=== PATIENT | male | born 1990 | race Caucasian/White ===

== ENCOUNTER 2020-03-11 08:28 | Outpatient (REF) | payer OTHER, SELFPAY ==
[2020-03-11 11:10] LABS: MANUAL DIFF FLAG NO
[2020-03-11 11:22] LABS: Estimated Average Glucose 85 mg/dL; Hemoglobin A1c % 4.6 %
[2020-03-11 11:37] LABS: Basophils Percent Auto 0.8 % (0-2); Eosinophils Absolute Auto 0.2 X10*3/uL (0.0-0.4); Eosinophils Percent Auto 3.3 % (0-4); Hematocrit 43.9 % (42-52); Hemoglobin 15.3 g/dl (14.0-18.0); Imm Gran Abs Auto 0.02 X10*3/uL (0.00-0.03); Imm Gran Pct Auto 0.4 % (0.0-0.4); Lymphocytes Absolute Auto 1.2 X10*3/uL (1.2-4.9); Lymphocytes Percent Auto 24.8 % (20-40); Mean Corpuscular HGB Conc 34.9 g/dl (31.0-36.0); Mean Corpuscular Hemoglobin 30.8 pg (27.0-33.0); Mean Corpuscular Volume 88.5 fL (80-98); Monocytes Absolute Auto 0.4 X10*3/uL (0.1-1.2); Monocytes Percent Auto 7.5 % (2-11); Neutrophils Absolute Auto 3.1 X10*3/uL (2.0-8.3); Neutrophils Percent Auto 63.2 % (45-73); Platelet Count 270 X10*3/uL (160-400); Red Blood Count 4.96 X10*6/uL (4.60-5.80); Red Cell Distribution Width 12.6 % (11.0-16.0); White Blood Count 4.8 X10*3/uL (4.8-10.8)
[2020-03-11 12:17] LABS: Folate 6.8 ng/mL (> or = 4.0); Vitamin B12 243 pg/mL (200-900)
[2020-03-11 12:21] LABS: Alanine Aminotransferase 35 U/L (0-40); Albumin Level 4.7 g/dL (3.5-5.0); Alkaline Phosphatase 96 U/L (39-117); Anion Gap 14 (12-20); Aspartate Amino Transferase 26 U/L (5-37); Bilirubin Total 1.6 mg/dL (0.0-1.0); Blood Urea Nitrogen 9 mg/dL (9-16); Calcium 9.9 mg/dL (8.4-10.2); Carbon Dioxide 29 mmol/L (22-29); Chloride 100 mmol/L (96-108); Cholesterol 200 mg/dL; Estimated Glomerular Filt Rate > 60; Glucose Fasting 102 mg/dL (60-99); HDL Cholesterol 51 mg/dL; Iron 251 mcg/dL (45-160); LDL Cholesterol Calculated 117 mg/dl; Magnesium 2.1 mg/dL (1.6-2.6); Percent Iron Saturation 70 % (15-50); Potassium 4.5 mmol/l (3.3-5.1); Sodium 138 mmol/L (135-145); Total Iron Binding Capacity 357 mcg/dL (228-428); Total Protein 7.5 g/dL (6.5-8.0); Triglycerides 160 mg/dL; Unsaturated Iron Binding 106 ug/dL
[2020-03-11 12:22] LABS: T4 Thyroxine 5.8 ug/dL (4.5-12.0); TSH reflex Free T4 1.28 mIU/mL (0.32-4.0); Vitamin D 25-OH Total 26.6 ng/mL (>30)
== END 2020-03-11 08:29 | disposition home or self-care (01) ==
LOC: HO.HMGCLDS 08:28
PROVIDERS: PCP Internal Medicine; Visit Provider Counselor Addiction (Substance Use Disorder)
DX: F41.1 Generalized anxiety disorder (principal); F10.21 Alcohol dependence, in remission; F33.2 Major depressive disorder, recurrent severe without psychotic features; M54.5 Low back pain
CPT/HCPCS: 36415; 80053; 80061; 82306; 82607; 82746; 83036; 83540; 83735; 84436; 84443; 85025

== ENCOUNTER 2020-12-01 08:16 | Outpatient (REF) | payer OTHER, SELFPAY ==
[2020-12-01 11:15] LABS: Hematocrit 44.2 % (42-52); Hemoglobin 15.9 g/dl (14.0-18.0); Mean Corpuscular Hemoglobin 33.5 pg (27.0-33.0); Mean Corpuscular Volume 93.1 fL (80-98); Mean Platelet Volume 10.8 fL (9.4-12.4); Platelet Count 178 X10*3/uL (160-400); Red Blood Count 4.75 X10*6/uL (4.60-5.80); Red Cell Distribution Width 11.9 % (11.0-16.0); White Blood Count 4.2 X10*3/uL (4.8-10.8)
[2020-12-01 11:27] LABS: Estimated Average Glucose 82 mg/dL; Hemoglobin A1c % 4.5 %
[2020-12-01 11:34] LABS: Alanine Aminotransferase 148 U/L (0-40); Albumin Level 4.6 g/dL (3.5-5.0); Alkaline Phosphatase 120 U/L (39-117); Anion Gap 16 (12-20); Aspartate Amino Transferase 165 U/L (5-37); Blood Urea Nitrogen 7 mg/dL (9-16); Calcium 9.3 mg/dL (8.4-10.2); Carbon Dioxide 27 mmol/L (22-29); Chloride 99 mmol/L (96-108); Cholesterol 180 mg/dL; Estimated Glomerular Filt Rate > 60; Glucose Random 100 mg/dL (60-115); Iron 234 mcg/dL (45-160); Magnesium 1.7 mg/dL (1.6-2.6); Percent Iron Saturation 69 % (15-50); Potassium 4.4 mmol/L (3.3-5.1); Sodium 138 mmol/L (135-145); Total Iron Binding Capacity 341 mcg/dL (228-428); Total Protein 7.6 g/dL (6.5-8.0); Unsaturated Iron Binding 107 ug/dL
[2020-12-01 11:56] LABS: Ferritin 718 ng/mL (20-250); TSH reflex Free T4 2.03 uIU/mL (0.32-4.0); Vitamin D 25-OH Total 40.9 ng/mL (>30)
[2020-12-01 12:11] LABS: Vitamin B12 688 pg/mL (200-900)
== END 2020-12-01 08:17 | disposition home or self-care (01) ==
LOC: HO.HMGCLDS 08:16
PROVIDERS: PCP Internal Medicine; Visit Provider Counselor Addiction (Substance Use Disorder)
DX: E83.119 Hemochromatosis, unspecified (principal); F41.1 Generalized anxiety disorder; F33.2 Major depressive disorder, recurrent severe without psychotic features; Z79.899 Other long term (current) drug therapy
CPT/HCPCS: 36415; 80053; 82306; 82465; 82607; 82728; 82746; 83036; 83540; 83735; 84443; 85027

== ENCOUNTER 2021-03-30 08:05 | Outpatient (REF) | payer OTHER, SELFPAY ==
[2021-03-30 11:28] LABS: MANUAL DIFF FLAG NO
[2021-03-30 11:43] LABS: Basophils Percent Auto 0.8 % (0-2); Eosinophils Percent Auto 1.1 % (0-4); Hematocrit 43.5 % (42.0-52.0); Hemoglobin 16.1 g/dl (14.0-18.0); Imm Gran Abs Auto 0.02 X10*3/uL (0.00-0.03); Imm Gran Pct Auto 0.5 % (0.0-0.4); Lymphocytes Absolute Auto 0.9 X10*3/uL (1.2-4.9); Lymphocytes Percent Auto 23.8 % (20-40); Mean Corpuscular Hemoglobin 34.9 pg (27.0-33.0); Mean Corpuscular Volume 94.4 fL (80.0-98.0); Mean Platelet Volume 10.6 fL (9.4-12.4); Monocytes Absolute Auto 0.3 X10*3/uL (0.1-1.2); Monocytes Percent Auto 7.2 % (2-11); Neutrophils Absolute Auto 2.5 x10*3/uL (2.0-8.3); Neutrophils Percent Auto 66.6 % (45-73); Platelet Count 206 X10*3/uL (160-400); Red Blood Count 4.61 X10*6/uL (4.60-5.80); Red Cell Distribution Width 11.9 % (11.0-16.0); White Blood Count 3.7 X10*3/uL (4.8-10.8)
[2021-03-30 12:08] LABS: Estimated Average Glucose 80 mg/dL; Hemoglobin A1c % 4.4 %
[2021-03-30 12:11] LABS: Alanine Aminotransferase 114 U/L (0-40); Albumin Level 4.6 g/dL (3.5-5.0); Alkaline Phosphatase 120 U/L (39-117); Anion Gap 20 (12-20); Aspartate Amino Transferase 241 U/L (5-37); Bilirubin Total 2.9 mg/dL (0.0-1.0); Blood Urea Nitrogen 5 mg/dL (9-16); Calcium 9.2 mg/dL (8.4-10.2); Carbon Dioxide 22 mmol/L (22-29); Chloride 101 mmol/L (96-108); Cholesterol 206 mg/dL; Estimated Glomerular Filt Rate > 60; Glucose Fasting 104 mg/dL (60-99); HDL Cholesterol 64 mg/dL; LDL Cholesterol Calculated 114 mg/dl; Potassium 3.6 mmol/L (3.3-5.1); Sodium 139 mmol/L (135-145); Total Protein 7.9 g/dL (6.5-8.0); Triglycerides 144 mg/dL
[2021-04-01 13:36] LABS: Transferrin 292 mg/dL (188-341)
== END 2021-03-30 08:06 | disposition home or self-care (01) ==
LOC: HO.HMGCLDS 08:05
PROVIDERS: PCP Internal Medicine; Visit Provider Counselor Addiction (Substance Use Disorder)
DX: E83.119 Hemochromatosis, unspecified (principal); F41.1 Generalized anxiety disorder; F33.2 Major depressive disorder, recurrent severe without psychotic features; Z79.899 Other long term (current) drug therapy
CPT/HCPCS: 36415; 80053; 80061; 83036; 84466; 85025

== ENCOUNTER 2021-12-09 07:29 | Outpatient (REF) | payer OTHER, SELFPAY ==
[2021-12-09 11:28] LABS: MANUAL DIFF FLAG NO
[2021-12-09 11:30] LABS: Basophils Absolute Auto 0.1 X10*3/uL (0.0-0.2); Eosinophils Absolute Auto 0.2 X10*3/uL (0.0-0.4); Eosinophils Percent Auto 2.9 % (0-4); Hemoglobin 14.4 g/dl (14.0-18.0); Imm Gran Abs Auto 0.03 X10*3/uL (0.00-0.03); Imm Gran Pct Auto 0.5 % (0.0-0.4); Lymphocytes Absolute Auto 1.4 X10*3/uL (1.2-4.9); Lymphocytes Percent Auto 23.5 % (20-40); Mean Corpuscular Hemoglobin 33.1 pg (27.0-33.0); Monocytes Absolute Auto 0.6 X10*3/uL (0.1-1.2); Monocytes Percent Auto 10.1 % (2-11); Neutrophils Absolute Auto 3.6 x10*3/uL (2.0-8.3); Platelet Count 201 X10*3/uL (160-400); Red Blood Count 4.35 X10*6/uL (4.60-5.80); Red Cell Distribution Width 13.2 % (11.0-16.0); White Blood Count 5.9 X10*3/uL (4.8-10.8)
[2021-12-09 11:43] LABS: Estimated Average Glucose 82 mg/dL; Hemoglobin A1c % 4.5 %
[2021-12-09 11:49] LABS: Alanine Aminotransferase 49 U/L (0-40); Albumin Level 4.4 g/dL (3.5-5.0); Alkaline Phosphatase 79 U/L (39-117); Anion Gap 11 (12-20); Aspartate Amino Transferase 37 U/L (5-37); Bilirubin Total 1.1 mg/dL (0.0-1.0); Blood Urea Nitrogen 12 mg/dL (9-16); Calcium 8.8 mg/dL (8.4-10.2); Carbon Dioxide 24 mmol/L (22-29); Chloride 106 mmol/L (96-108); Cholesterol 181 mg/dL; Estimated Glomerular Filt Rate > 60; Glucose Random 120 mg/dL (60-115); HDL Cholesterol 60 mg/dL; Iron 66 mcg/dL (45-160); LDL Cholesterol Calculated 96 mg/dl; Magnesium 1.8 mg/dL (1.6-2.6); Percent Iron Saturation 19 % (15-50); Potassium 3.9 mmol/L (3.3-5.1); Sodium 137 mmol/L (135-145); Total Iron Binding Capacity 342 mcg/dL (228-428); Total Protein 7.1 g/dL (6.5-8.0); Triglycerides 127 mg/dL; Unsaturated Iron Binding 276 ug/dL
[2021-12-09 12:14] LABS: Ferritin 443 ng/mL (20-250); TSH reflex Free T4 1.41 uIU/mL (0.32-4.0)
[2021-12-09 12:21] LABS: Free T4 (Free Thyroxine) 0.83 ng/dL (0.71-1.85)
[2021-12-09 12:22] LABS: Folate 7.9 ng/mL (> or = 4.0); Vitamin B12 297 pg/mL (200-900)
[2021-12-15 11:22] LABS: VITAMIN D (1,25 OH) D3 42 pg/mL; Vit D (1,25-Dihydroxy) Total 42 pg/mL (18-72); Vitamin D (1,25 OH) D2 <8 pg/mL
== END 2021-12-09 07:30 | disposition home or self-care (01) ==
LOC: HO.HMGCLDS 07:29
PROVIDERS: Visit Provider Counselor Addiction (Substance Use Disorder)
DX: E83.119 Hemochromatosis, unspecified (principal); R56.9 Unspecified convulsions; F41.1 Generalized anxiety disorder; F33.2 Major depressive disorder, recurrent severe without psychotic features; F10.21 Alcohol dependence, in remission; Z79.899 Other long term (current) drug therapy
CPT/HCPCS: 36415; 80053; 80061; 82607; 82652; 82728; 82746; 83036; 83540; 83735; 84439; 84443; 85025

== ENCOUNTER 2023-02-03 08:51 | Outpatient (RCR) | payer OTHER, SELFPAY | END 2023-02-03 23:59 | disposition home or self-care (01) | LOC: HO.PHPA 08:51 | PROVIDERS: Visit Provider Psychiatry & Neurology Psychiatry | DX: F33.2 Major depressive disorder, recurrent severe without psychotic features (principal); F41.1 Generalized anxiety disorder; F10.21 Alcohol dependence, in remission | CPT/HCPCS: 90791 ==

== ENCOUNTER → 2023-02-24 12:32 | Outpatient (BNV) | payer OTHER, SELFPAY | PROVIDERS: Visit Provider Psychiatry & Neurology Psychiatry | DX: F32.5 Major depressive disorder, single episode, in full remission (principal); F41.1 Generalized anxiety disorder; F41.0 Panic disorder [episodic paroxysmal anxiety] | CPT/HCPCS: 90792; 99213; 99214; 99499 ==

== ENCOUNTER 2023-03-18 13:15 | Outpatient (RCR) | payer OTHER, SELFPAY ==
--- NOTE | 2023-02-25 11:27 | HO.PS.ADMBH ---
HPI Date of Service: 02/25/23 Chief Complaint: anxiety,AUD Sources of Information: patient interviewed, chart reviewed and crisis/core team assessment reviewed HPI Narrative: Martín is a [age]-year-old white, single, unemployed, man with longstanding history of depression, severe anxiety, social anxiety. He does have history of alcohol abuse but stopped in July. He had been abusing alcohol for 2 or 3 years. Previously he had been in rehab but this time he stopped on his own. He is currently on Cymbalta 90 mg a day which was recently increased from 60 mg and the addition was more helpful. Gabapentin 300 mg t.i.d.. He uses clonidine on a p.r.n. basis at 0.1 mg. He is seen by a Jennifer Deng at [facility] in [place]. She sees him as a prescriber and therapist. He has had no inpatient hospitalizations.. She recommended for him to come to the [facility] hospital program. He has had passive suicidal ideations with no plans or intent and no history of attempts. No history of aggressive behavior. He denies any side effects Past Psychiatric History: [facility] Medical History (Updated 05/28/20 @ 08:50 by Ashley Bowers MD) Anxiety and depression Obesity (BMI 30-39.9) GERD (gastroesophageal reflux disease) Hypercholesterolemia Lumbar compression fracture Alcohol abuse Seizure disorder Surgical History (Updated 09/08/20 @ 21:01 by Ashley Bowers MD) History of laminectomy Social History: Martín is 1 of 4 siblings. He has 3 brothers, 2 live locally and 1 overseas. His father 3 years ago from cardiopulmonary issues and his mother is alive and lives locally. He does have connections to her. He did finish high school but nothing beyond. 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 Substance History: Alcohol, stopped in July Trauma History: None Meds/Allergies Meds Home Medications Medication Instructions Recorded Confirmed Type clonidine HCl 0.1 mg tablet 0.1 mg PO DAILY 02/20/20 05/28/20 History pyridoxine (vitamin B6) 50 mg 25 mg PO DAILY 02/20/20 05/28/20 History tablet duloxetine 30 mg capsule,delayed 30 mg PO DAILY 05/28/20 05/28/20 History release Allergies Allergies Allergy/AdvReac Type Severity Reaction Status Date / Time amoxicillin [From AUGMENTIN] Allergy Unknown UNKNOWN Unverified 02/26/20 09:11 clavulanic acid Allergy Unknown UNKNOWN Unverified 02/07/20 18:57 [From AUGMENTIN] Mental Status Exam Mental Status Exam Narrative: In today's visit he is alert, oriented and pleasant. Normal speech. Good eye contact. Affect is appropriate and varied. No overt signs of anxiety. Moderate dysphoria present. No signs of psychosis. He admits to passive SI but no plans or intent or danger. Cognitively is intact. Judgment is intact Assessment & Plan Assessment & Plan (1) Anxiety and depression: Status: Acute Code(s): F41.9 - Anxiety disorder, unspecified; F32.9 - Major depressive disorder, single episode, unspecified Plan Continue current medications. One-month prescriptions for Cymbalta 30 and 60 mg were sent. He will continue partial hospital program Patient educated on: diagnosis, medication risk/benefits and substance abuse Certification I certify that partial hospital treatment is medically necessary due to the symptoms and problems resulting from the patient's mental illness and the failure to treat the patient at the partial hospital level of care would likely result in the patient requiring inpatient psychiatric care which could not be prevented at a less intensive level of care. Time Spent With Patient Time: Total time managing care of this patient today __45__ minutes.
[2023-02-25 12:13] VITALS: BP 120/70; PULSE 80; TEMP 36.8
[2023-02-25 12:21] VITALS: BMI 43.0
--- NOTE | 2023-02-25 13:39 | PC.ADMIT ---
Patient is a 32 year old male who self referred to the program d/t increased depression, anxiety, and PTSD sxs. Patient reports he is struggling with a lot of anxiety and fears over his life and future. He reports increase in symptoms when he found out his friend has kidney failure. Has not worked since 2019 since fracturing back and having a seizure. Patient stated he fractured his back when he had a seizure. He believes his seizure was caused by ETOH withdrawal however is not certain. He quit using ETOH July 28, 2022. Patient lives with mother and brother who are supportive. He is alert and oriented x4. Calm and cooperative. He presents with depressed mood and affect. He denied SI. I gave him a copy of his safety plan if needed and I reviewed the plan with him. Medications reconciled with patient and patient's pharmacy. He reports taking medications as prescribed.
--- NOTE | 2023-03-02 08:16 | HO.PHP ---
The client called out because he hurt his foot. He states that he will be in tomorrow
--- NOTE | 2023-03-02 11:17 | HO.PHP ---
I called and left a message with the clients provider Jennifer LINTON APRN re clients attendance and participation in the program.
--- NOTE | 2023-03-03 13:24 | HO.PHPPROGNO ---
Subjective Subjective Date of Service: 03/03/23 Reason For Visit: anxiety,AUD Interim History: As per [facility] H andP 02/25/23: longstanding history of depression, severe anxiety, social anxiety. He does have history of alcohol abuse but stopped in July. He had been abusing alcohol for 2 or 3 years. Previously he had been in rehab but this time he stopped on his own. He is currently on Cymbalta 90 mg a day which was recently increased from 60 mg and the addition was more helpful. Gabapentin 300 mg t.i.d.. He uses clonidine on a p.r.n. basis at 0.1 mg. He is seen by a Jennifer Deng at [facility] in [place]. She sees him as a prescriber and therapist. He has had no inpatient hospitalizations.. She recommended for him to come to the [facility] hospital program. He has had passive suicidal ideations with no plans or intent and no history of attempts. No history of aggressive behavior. He denies any side effects Past Psychiatric History: Outpatient Today: Patient reports he is gradually adjusting to the [facility] program. First full day was last week. Hopeful he can open up a little bit more and starting to get used to things. Reports his 2 main groups of symptoms are anxiety and depression. Anxiety symptoms include going out, being around lots of people and that Cymbalta has helped a little bit with those things compared to 4 years ago for example can go grocery shopping but if it is a new task or set of people it is extremely challenging. Reports depression still present and Cymbalta appears to be less effective for this, with symptoms of low mood, low energy, low motivation, negative self-talk and either increased or decreased sleep and either increased or decreased appetite. Very clear he is not suicidal. Overall we discussed maxing out Cymbalta as it does appear to have had some benefit and has been on current 90 mg dose for 1 month. Does have enough medications at home to make this change i.e. 60 mg 2 times per day and will be reviewed by [facility] hospital program provider and of next week or the following week, when a new prescription would be needed if they are continuing with the 120 mg dose. Patient felt positive regarding this plan. Medication Compliance: Yes Side effects from medications: No Attending Groups: Yes Mental Status Exam Mental Status Exam Narrative: Pleasant. Engaged. Appropriate presented. Dysthymic. No SI. No HI. No agitation. No psychosis. Insight and judgment okay Diagnostics Vital Signs (24Hr): BMI result Body Mass Index 43.0 Assessment & Plan Assessment & Plan (1) Anxiety and depression: Status: Acute Code(s): F41.9 - Anxiety disorder, unspecified; F32.9 - Major depressive disorder, single episode, unspecified Plan Overall we discussed maxing out Cymbalta as it does appear to have had some benefit and has been on current 90 mg dose for 1 month. Does have enough medications at home to make this change i.e. 60 mg 2 times per day and will be reviewed by partial hospital program provider and of next week or the following week, when a new prescription would be needed if they are continuing with the 120 mg dose. Patient felt positive regarding this plan Patient educated on: medication risk/benefits Informed Consent: understands Reason for contiued partial hosp. stay Substantial Risk for: med/psych decompensation Certification I certify that partial hospital treatment is medically necessary due to the symptoms and problems resulting from the patient's mental illness and the failure to treat the patient at the partial hospital level of care would likely result in the patient requiring inpatient psychiatric care which could not be prevented at a less intensive level of care. Total time managing care of this patient today __20__ minutes. Discharge Plan Discharge Attending provider: Feliberto Lal Medications: New duloxetine [Cymbalta] 60 mg capsule,delayed release(DR/EC) 60 mg PO DAILY Qty: 30 0RF duloxetine [Cymbalta] 30 mg capsule,delayed release(DR/EC) 30 mg PO DAILY Qty: 30 0RF Rx Instructions: TDD 90 mg No Action gabapentin 300 mg capsule 900 mg PO TID Qty: 270 0RF Stand Alone Forms: Patient Portal Discharge page Telehealth Telehealth Location of provider rendering services: other ([facility]) Location of patient: other ([facility] Patient Identification confirmed using: Name, : Yes Telehealth method: video Patient verbally consented to treatment: Yes Minutes spent on Phone/Video with Pt.: 15
--- NOTE | 2023-03-07 11:35 | HO.PHP ---
[facility] staff met with Martín from 10:45 AM to 11:30 AM due to him struggling with his anxiety and depression. Martín presented as tearful, anxious, and depressed. Martín disclosed that this morning he was feeling good and had no concerns but stated the first group was triggering to him, even though he didn't think that the conversation would be. Martín expressed that he has self-deprecating thoughts and often compares himself to his brother. PHP staff and Martín discussed reframing his thoughts and thinking in a more positive aspect or reminding himself that this is just a thought. Martín expressed that his therapist encouraged him to do that and he was doing well for a couple months and is uncertain to what has changed within that time. Martín voiced that he enjoys his therapist. [facility] staff encorporated some calming techniques to help Martín with regulation so he could calm his body. Martín was having a challenging time catching his breath and mentioned he gets tightness in his chest and shoulders, along with a lump in his throat. Martín was provided with lavender essential oil to help with calming while completing a 10 minute guided meditation with him. Martín appeared calmer and mentioned it helped some. [facility] staff assessed any safety concerns. Martín did not disclose any safety concerns at this time and stated he has no SI, plan or intent. Martín stated he feels okay enough to attend group 3. [facility] staff was receptive and encouraged Martín, if he needs to take a break he can and if he needs more support, she can notify staff. Martín was receptive.
--- NOTE | 2023-03-07 16:40 | HO.PHP ---
on 03/03/23 the clients case was revewed and opened in treatment team.
--- NOTE | 2023-03-08 08:57 | HO.PHP ---
The client called and reported he wasn't coming in because he has a stomach ache. He told Geri that he is safe.
--- NOTE | 2023-03-08 16:17 | HO.PHP ---
[facility] staff attempted to follow up with Martín at the end of the day. Martín's phone number stated that it is not currently in service and a message was not able to be left.
--- NOTE | 2023-03-09 08:09 | HO.PHP ---
The clients mother Lissy called to inform us that Martín won't be in today as he continues to be sick. She states that he is safe and will be in tomorrow.
--- NOTE | 2023-03-10 15:47 | HO.PHPPROGNO ---
Subjective Subjective Date of Service: 03/10/23 Reason For Visit: anxiety,AUD Interim History: Patient seen for follow up today. He reports no active issues or complaints. Continues to tolerate recent increase in duloxetine from 60 to 90 mg daily. He hasnt noticed any significant change, mood stablity has slightly improved from a 3/10 at start to 4 or 5 out of 10 this week. Denies any thoughts of harming self or others. No AH, VH. No evidence of psychosis, Has been in recovery since July, Continues using marijuana daily, senior living, no other substances or alcohol. 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 Engaged. Appropriate presented. Dysthymic. Moments of brightening. No SI. No HI. No agitation. No psychosis. Insight and judgment good Diagnostics Vital Signs (24Hr): BMI result Body Mass Index 43.0 Assessment & Plan Assessment & Plan (1) Major depressive disorder with single episode, in remission: Status: Acute Code(s): F32.5 - Major depressive disorder, single episode, in full remission (2) Anxiety disorder: Status: Acute Code(s): F41.9 - Anxiety disorder, unspecified Plan Contnue treatment plan Certification I certify that partial hospital treatment is medically necessary due to the symptoms and problems resulting from the patient's mental illness and the failure to treat the patient at the partial hospital level of care would likely result in the patient requiring inpatient psychiatric care which could not be prevented at a less intensive level of care. Total time managing care of this patient today ____ minutes. Discharge Plan Discharge Attending provider: Feliberto Lal Medications: New duloxetine [Cymbalta] 60 mg capsule,delayed release(DR/EC) 60 mg PO DAILY Qty: 30 0RF duloxetine [Cymbalta] 30 mg capsule,delayed release(DR/EC) 30 mg PO DAILY Qty: 30 0RF Rx Instructions: TDD 90 mg No Action gabapentin 300 mg capsule 900 mg PO TID Qty: 270 0RF Stand Alone Forms: Patient Portal Discharge page
--- NOTE | 2023-03-15 16:20 | P.PNPSP_ITS ---
Subjective Subjective Date of Service: 03/15/23 Reason For Visit: anxiety,AUD Interim History: Patient seen today. He was seen for complaints of increased anxiety related to discharge. Patient was noted in hallway earlier, appeared upset. Says he has been panicking on and off today anticipating being discharged. He has since found out he is getting an extension on his time here and appears more relaxed and bright, but still reporting signifcant anxiety about leaving program. Says it has been helpful to be in a structured supportive environment. He is worried about regressing decompensating once he leaves. He says he still feels sad, and is notably tearful when discussing this. He has been complaint on the duloxetine. He had dose increase upon admission, he has yet to notice any difference but is aware this takes some time. He is at full dose 120 mg/d (split) but is anxious he will not have full resolution of symptoms. He grades his depression severity as 9/10 prior to starting duloxetine, 6/10 at best since being on it, anxiety at a 10/10 before starting and has maintained at a 5 out of 10 in severity since being on duloxetine. He denies any SI, perhaps some vague fleeting thoughts, but overall says he has not had any suicidal thoughts since he started the program here. Mental Status Exam Mental Status Exam Patient Appearance: Well Grooomed Patient Orientation: Person, Place, Time and Situation Level of Consciousness: Awake and Alert Patient Behavior: Cooperative and Crying Mood Description: Apprehensive Affect Description: Sad Patient Cognition Impaired: No Ability to Follow Directions: Excellent Speech Pattern: Clear Memory Description: Intact Hallucinations: None Delusions: Not Present Thought Process: Linear Thought Content: positive for Circumstantial Depressive Symptoms: Increased Anxiety, Low Self Esteem and Difficulty Sakshi ntrating Judgement: Good Judgement and Insight: adequate Diagnostics Vital Signs (24Hr): BMI result Body Mass Index 43.0 Assessment & Plan Assessment & Plan (1) Major depressive disorder with single episode, in partial remission: Status: Acute Code(s): F32.4 - Major depressive disorder, single episode, in partial remission (2) Anxiety disorder: Status: Acute Code(s): F41.9 - Anxiety disorder, unspecified Plan start bupirone 5 mg TID (start one tablet on first day, then take one tablet twice a day on day 2, then continue at one tablet TID) continue other medicaitons without change Patient educated on: diagnosis and medication risk/benefits Informed Consent: understands Reason for contiued partial hosp. stay Substantial Risk for: med/psych decompensation Certification I certify that partial hospital treatment is medically necessary due to the symptoms and problems resulting from the patient's mental illness and the failure to treat the patient at the partial hospital level of care would likely result in the patient requiring inpatient psychiatric care which could not be prevented at a less intensive level of care. Total time managing care of this patient today __30__ minutes. Discharge Plan Discharge Attending provider: Feliberto Lal Medications: New duloxetine [Cymbalta] 60 mg capsule,delayed release(DR/EC) 60 mg PO DAILY Qty: 30 0RF duloxetine [Cymbalta] 30 mg capsule,delayed release(DR/EC) 30 mg PO DAILY Qty: 30 0RF Rx Instructions: TDD 90 mg buspirone 5 mg tablet 5 mg PO TID Qty: 30 0RF Rx Instructions: start one tablet po daily on day 1, then take one tablet po BID one day 2, t hen continue at one table po TID No Action gabapentin 300 mg capsule 900 mg PO TID Qty: 270 0RF Stand Alone Forms: Patient Portal Discharge page
--- NOTE | 2023-03-15 16:59 | HO.PHP ---
At 11:00 am database report writer met with Martín to discuss current struggles in group with reoccurring crying spells. Pt reports he is uncertain why he feels a sudden urge to sob in group. States he will suddenly feel great loneliness or negative about himself. Pt stated he did not feel ready to discharge today. Pt cried during meeting, with database report writer pt was able to come up with several coping skills to practice tonight. [facility] staff will seek more time for Martín to continue at [facility] and not [place] today.
--- NOTE | 2023-03-16 09:44 | PC.NURSE ---
Addendum entered by Jocy Thomas RN 03/16/23 09:49: Martín stated Dr Rader discussed starting a new medication for anxiety. Dr Rader aware of aforementioned information. She stated she talked to him about Buspar and is putting in a prescription. Original Note: Martín appeared to have a panic attack before program started. He was crying, increased breathing, and feeling tremulous and lightheaded. VSS 110/60 P 80. He stated he has been having panic attacks. Reports much negative thinking and living in his thoughts. Hospital employee saw patient and called an ambulance. Martín stated he did not need an ambulance. He was able to slow his breathing by doing deep breathing exercises. Martín was able to attend the morning group.
[2023-03-16 09:58] VITALS: BP 110/60; PULSE 80
--- NOTE | 2023-03-16 10:56 | PM.EVENT ---
Event Note Date of Service: 03/16/23 Event Note: Patient experiencing panic attacks related to upcoming discharge later this week. Was slated to leave yesterday but got an extension. He was seen yesterday by this provider and plan to start Buspar as augmentation strategy for depression, on Cymbalta 60 mg BID, which was increased on admission on 02/24. I reviewed his chart, patient is on clonidine 0.1 mg prn as per Admission Note. RN checked with patient, he reportedly uses clonidine only on occasion, his last script is from 4 years ago. I will send a short refill to his pharmacy and plan to follow up with Martín tomorrow when I am back in the office. Time Spent With Patient Time: Total time managing care of this patient today __10__ minutes.
--- NOTE | 2023-03-16 16:35 | HO.PHP ---
[facility] staff contacted Martín upon his request via telephone to inform him of his extension. [facility] staff stated she was able to extend for 6 more days, in which Martín vocalized he would prefer to discharge on Tuesday. [facility] staff was receptive and informed him she will review the discharges and make him aware tomorrow. Martín was receptive.
--- NOTE | 2023-03-18 10:16 | P.PNPSP_ITS ---
Subjective Subjective Date of Service: 03/18/23 Reason For Visit: anxiety,AUD Interim History: Patient seen for discharge today. No acute concerns or issues. Patient has been taking the Buspar and is currently at TID. Denies any adverse effects. He is hopeful it will help with anxiety in time. He agrees to hold off from further titration of the medication to 10 mg TID until next week, when he follows up with provider. He also picked up sergio PRN clonidine, but has not needed any since that day he had a panic attack in the hallway. He has not had any acute issues with anxiety. He reports his mood as good, denies any depressive symptoms. Denies any SI. No thoughts of giving up on life, no thoughts of harming self or others. He is feeling ready now for discharge and feels he benefitted from the program. Medication Compliance: Yes Side effects from medications: No Review of Systems Acute medical concerns: No Mental Status Exam Mental Status Exam Patient Appearance: Well Grooomed Patient Orientation: Person, Place and Time Level of Consciousness: Awake Patient Behavior: Appropriate, Cooperative and Good Eye Contact Mood Description: Calm and Nervous Affect Description: Appropriate Patient Cognition Impaired: No Ability to Follow Directions: Excellent Speech Pattern: Clear and Coherent Memory Description: Intact Hallucinations: None Delusions: Not Present Thought Process: Intact Thought Content: positive for Circumstantial Judgement: Good Diagnostics Vital Signs (24Hr): BMI result Body Mass Index 43.0 Assessment & Plan Assessment & Plan (1) Major depressive disorder with single episode, in remission: Status: Acute Code(s): F32.5 - Major depressive disorder, single episode, in full remission (2) Generalized anxiety disorder with panic attacks: Status: Acute Code(s): F41.1 - Generalized anxiety disorder; F41.0 - Panic disorder [episodic paroxysmal anxiety] Plan Patient being discharged today from [facility] Will continue with medication management by provider in the community Patient educated on: diagnosis and medication risk/benefits Informed Consent: understands Reason for contiued partial hosp. stay Substantial Risk for: stable for discharge Certification I certify that partial hospital treatment is medically necessary due to the symptoms and problems resulting from the patient's mental illness and the failure to treat the patient at the partial hospital level of care would likely result in the patient requiring inpatient psychiatric care which could not be prevented at a less intensive level of care. Total time managing care of this patient today __30__ minutes. Discharge Plan Discharge Attending provider: Feliberto Lal Medications: New clonidine HCl 0.1 mg tablet 0.1 mg PO BID PRN (Reason: anxiety) Qty: 10 0RF Rx Instructions: avoid taking if dizzy, lightheaded or sedated buspirone 10 mg tablet 10 mg PO TID Qty: 42 0RF Rx Instructions: continue 1/2 tablet po TID for 8 days, then increase dose by 1/2 tablet per day until taking 1 tablet po TID Changed duloxetine [Cymbalta] 60 mg capsule,delayed release(DR/EC) 60 mg PO BID 14 Days Qty: 28 0RF No Action gabapentin 300 mg capsule 900 mg PO TID Qty: 270 0RF Stand Alone Forms: Patient Portal Discharge page Patient Education: Depression (DC), Generalized Anxiety Disorder (ED)
== END 2023-03-18 23:59 | disposition home or self-care (01) ==
LOC: HO.PHPA 13:15
PROVIDERS: Visit Provider Psychiatry & Neurology Psychiatry
DX: F32.5 Major depressive disorder, single episode, in full remission (principal); F41.1 Generalized anxiety disorder; F41.0 Panic disorder [episodic paroxysmal anxiety]; Z79.899 Other long term (current) drug therapy
CPT/HCPCS: 90791; 90853

== ENCOUNTER 2025-05-01 10:04 | Outpatient (REF) | payer OTHER, SELFPAY ==
--- NOTE | ~2025-05-01 | XR_ITS ---
EXAMINATION: XR CHEST CLINICAL INFORMATION: R05.9 - Cough, unspecified COMPARISON: November 06, 2019 TECHNIQUE: 2 views of the chest were obtained. FINDINGS: No significant abnormality is noted involving the heart, lungs, mediastinum, bony thorax or soft tissues. XR/XR chest 2V IMPRESSION: No acute disease Electronically signed by: Lawrence Fenton MD 05/01/2025 10:52 AM [facility] [place]
[2025-05-01 14:35] LABS: Resp Syncy Virus RNA Qual PCR NEGATIVE (Negative); SARS COV2 PCR INHOUSE POSITIVE (Negative)
== END 2025-05-01 10:05 | disposition home or self-care (01) ==
LOC: HO.HMGCX 10:04
PROVIDERS: PCP Internal Medicine; Visit Provider Physician Assistant Medical
DX: R05.1 Acute cough (principal); R55 Syncope and collapse; R09.89 Other specified symptoms and signs involving the circulatory and respiratory systems
CPT/HCPCS: 71046; 87637; 99212

== ENCOUNTER 2025-05-01 10:04 | Outpatient (AMB) | payer OTHER, SELFPAY ==
--- NOTE | 2025-05-01 10:04 | AM.OFFWIN_ITS ---
Intake Vital Signs 05/01/25 10:11 Height 5 ft 8 in Weight 292 lb BMI 44.4 BP 100/64 Blood Pressure Location Rt brachial Position Sitting Pulse 98 Pulse Source Pulse Oximeter Temp 100 F Temp Source Oral Pulse Oximetry (%) 97 Oxygen Delivery Method Room Air Intake Visit Reasons: EP Body aches, nausea, sore throat, headaches Intake Note: pt presents with body aches, fatigue, nausea, sore throat, headaches, chest congestion with productive coughing x3 wks Patient Tobacco Use Status: Never used Tobacco Allergies amoxicillin (From AUGMENTIN) Allergy (Intermediate, Unverified 05/01/25 10:15) Hives clavulanic acid (From AUGMENTIN) Allergy (Intermediate, Unverified 05/01/25 10:15) Hives Do you need a note to return to daycare/school/sports/work: No HPI HPI Comments History of Present Illness Details History - The patient is a 34 year old male pres enting with respiratory symptoms lasting approximately 3.5 weeks. - He reports symptoms including body ach es, productive cough with yellowish- green sputum, headache, mild nausea, and weakness. - He had a fever at the onset of the ill ness and a recent temperature of 100?F. - He has been getting progressively wors e over the past few days - His sore throat has improved to a tick le that provokes coughing, and he denies any ear pain. - He initially felt he was getting arturo r, but his condition worsened again two days ago following a severe coughing fit that left his throat feeling raspy. - He has no history of asthma. - He has decrease appetite and has been drinking fluids. - He has no sick contacts. - He denies CP, SOB, abd pain, or diarrh ea. - He has no recent travel. Physical Exam General: Cooperative, healthy appearing, comfortable and no acute distress Orientation/consciousness: Patient oriented x3 Limitations: No limitations Head: Normal to inspection Ears: Hearing grossly normal bilaterally, external ears normal, and TM's no visualized, cerumen impaction noted. Nose: Normal external nose present, normal nares present, and no nasal discharge present. Face and sinus: Sinuses nontender to palpation. Mouth: Normal oral and palatal mucosa present and moist mucous membranes noted. Throat: Tonsils normal. Uvula is midline. Posterior oropharynx with erythema and no exudates. Eyes: Appearance normal, both eyes and all related structures Neck: Normal visual inspection, full ROM. No lymphadenopathy noted. Respiratory: Clear to auscultation bilaterally. Normal respiratory effort, able to speak in complete sentences. No respiratory distress, not tachypneic, no tripod positioning and no use of accessory muscles. Cardiovascular: Regular rate and rhythm. Normal S1 and S2. No m/r/g noted. Skin: No rashes or lesions noted Patient was informed and verbally consented to the use of an ambient scribe for clinic note documentation during this visit [facility] Medical History (Updated 03/21/23 @ 09:47 by Sonia Rader MD) Anxiety and depression Obesity (BMI 30-39.9) GERD (gastroesophageal reflux disease) Hypercholesterolemia Lumbar compression fracture Alcohol abuse Seizure disorder Surgical History (Updated 02/25/23 @ 12:21 by Jocy Thomas RN) Hx of cholecystectomy History of laminectomy Family History (Updated 02/20/20 @ 12:52 by Lindsay Garrett CMA) Father No problems noted. Mother No problems noted. Brother No problems noted. Brother No problems noted. Brother No problems noted. Social History (Updated 05/28/20 @ 08:48 by Ashley Bowers MD) Household Members: Family Alcohol intake: current Patient Tobacco Use Status: Never used Tobacco Review of Systems Const All systems reviewed & are unremarkable except as noted in HPI and below Physical Exam Vital Signs: Last Vital Signs Temp 100 F 05/01/25 10:11 Pulse 98 05/01/25 10:11 BP 100/64 05/01/25 10:11 Pulse Ox 97 05/01/25 10:11 Oxygen Delivery Method Room Air 05/01/25 10:11 BMI result Body Mass Index 44.4 Assessment & Plan Assessment & Plan (1) Cough: Code(s): R05.9 - Cough, unspecified Qualifiers: Cough type: acute Qualified Code(s): R05.1 - Acute cough (2) Pre-syncope: Code(s): R55 - Syncope and collapse Plan Most likely CAP vs URI vs covid vs flu vs RSV plan - will order CXR in the office - will order covid/flu/RSV swab - has a cerumen impaction and will have his ears irrigated while patient was in radiology, had a pre-syncopal episode. BP 99/63, HR was 112 and O2 was 98. Ice pack was given. - CXR was completed while at walk in -Advised patient to go to the ER - Ambulance was called and he wants to go to [facility] Orders: Orders SARS-CoV2/FLU/RSV Today R09.89 - Other specified symptoms and signs involving the circulatory and respiratory systems XR chest 2V Today R05.9 - Cough, unspecified Coding Level of Care Code Est Pt Level 3 (09453) Diagnoses Acute cough R05.1 Cough type: acute Pre-syncope R55
[2025-05-01 10:11] VITALS: BP 100/64; PULSE 98; TEMP 37.7; O2SAT 97; BMI 44.4
== END 2025-05-01 10:59 | disposition home or self-care (01) ==
PROVIDERS: Visit Provider Physician Assistant Medical
DX: R05.1 Acute cough (principal); R55 Syncope and collapse

== ENCOUNTER → 2025-05-01 10:33 | Outpatient (BNV) | payer OTHER, SELFPAY | PROVIDERS: PCP Internal Medicine; Visit Provider Radiology Diagnostic Radiology | DX: R05.9 Cough, unspecified (principal) | CPT/HCPCS: 71046 ==